=== PATIENT | male | born 1980 | race Two or more races ===

== ENCOUNTER 2019-07-26 04:13 | Emergency (ER) | payer SELFPAY ==
[~2019-07-26] VITALS: Ht 185.4 cm; Wt 160.0 kg
[2019-07-26 04:14] VITALS: BP 148/83
[2019-07-26] MEDS ORDERED: NAPR-56 PO (05:36)
[2019-07-26] MEDS ORDERED: HYDR-4383 PO (05:36)
== END 2019-07-26 05:46 | disposition home or self-care (01) ==
LOC: ER 04:14
DX: M19.072 Primary osteoarthritis, left ankle and foot (principal); M79.672 Pain in left foot; M19.90 Unspecified osteoarthritis, unspecified site; G89.29 Other chronic pain; Z87.891 Personal history of nicotine dependence; Z72.89 Other problems related to lifestyle; Z79.899 Other long term (current) drug therapy
CPT/HCPCS: 73610; 73630; 99283; 99284

== ENCOUNTER 2020-04-23 17:43 | Emergency (ER) | payer OTHER ==
[~2020-04-23] VITALS: Ht 185.4 cm; Wt 150.0 kg
[~2020-04-23 17:43] MED LIST: HYDR-4383 PO
[2020-04-23 17:55] VITALS: BP 175/90
== END 2020-04-23 18:18 | disposition home or self-care (01) ==
LOC: ER 17:43
DX: J06.9 Acute upper respiratory infection, unspecified (principal); G89.29 Other chronic pain; Z20.828 Contact with and (suspected) exposure to other viral communicable diseases
CPT/HCPCS: 36415; 87635; 99283